=== PATIENT | female | born 1965 | race Caucasian/White ===

== ENCOUNTER 2018-06-06 22:24 | Observation (INO) | payer OTHER ==
[2018-06-06] MEDS ORDERED: Sodium Chloride 0.9% 1,000 ML IV ONE (23:09)
--- NOTE | 2018-06-06 23:09 | C.PDOC ---
History Of Present Illness Patient complains of abdominal pain, nausea and vomiting for the last 4 days. Decreased po intake. No f/c. Discomfort radiates to the back. No urinary symptoms Time Seen by Provider: 06/06/18 23:09 Chief Complaint (Nursing): Abdominal Pain History Per: Patient History/Exam Limitations: no limitations Onset/Duration Of Symptoms: Days Current Symptoms Are (Timing): Still Present Context: Other Severity: Moderate Location Of Pain/Discomfort: RUQ Radiation Of Pain To:: Back Quality Of Discomfort: Dull, Cramping, Pressure Associated Symptoms: Nausea, Vomiting. denies: Chills, Diarrhea, Constipation Exacerbating Factors: None Alleviating Factors: None Last Bowel Movement: Today Recent travel outside of the [place]: No Additional History Per: Patient Abnormal Vaginal Bleeding: No Past Medical History Reviewed: Historical Data, Nursing Documentation, Vital Signs Vital Signs: Last Vital Signs Temp 98.3 F 06/06/18 22:46 Pulse 71 06/06/18 22:46 Resp 18 06/06/18 22:46 BP 127/75 06/06/18 22:46 Pulse Ox 100 06/06/18 22:46 Family History: States: No Known Family Hx - Social History Hx Alcohol Use: No Hx Substance Use: No - Immunization History Hx Tetanus Toxoid Vaccination: No Hx Influenza Vaccination: No Hx Pneumococcal Vaccination: No Review Of Systems Constitutional: Negative for: Fever, Chills Cardiovascular: Negative for: Chest Pain Respiratory: Negative for: Shortness of Breath Gastrointestinal: Positive for: Nausea, Vomiting, Abdominal Pain Genitourinary: Negative for: Dysuria Musculoskeletal: Negative for: Back Pain Skin: Negative for: Rash Neurological: Negative for: Weakness Psych: Negative for: Anxiety Physical Exam - Physical Exam Appears: Non-toxic, No Acute Distress Skin: Warm, Dry Head: Normacephalic Oral Mucosa: Moist Chest: Symmetrical Cardiovascular: Rhythm Regular Respiratory: No Rales, No Rhonchi, No Wheezing Gastrointestinal/Abdominal: Soft, Tenderness, Distention, No Guarding, No Rebound Back: No CVA Tenderness Extremity: No Tenderness Extremity: Bilateral: Atraumatic Neurological/Psych: Oriented x3 Gait: Steady ED Course And Treatment - Laboratory Results Result Diagrams: 06/07/18 00:02 06/07/18 00:02 O2 Sat by Pulse Oximetry: 100 Pulse Ox Interpretation: Normal Progress Note: spoke with surgery - came and saw the pt. spoke with dr foster - gi fellow- will come and see the pt. Disposition Discussed With Dr.: Dayana Foster Comment: accepted the pt onhis service and took over the care at 6AM Doctor Will See Patient In The: Hospital Counseled Patient/Family Regarding: Studies Performed, Diagnosis - Disposition Disposition: HOSPITALIZED Disposition Time: 23:09 Condition: FAIR - POA Present On Arrival: None - Clinical Impression Clinical Impression: Abdominal pain, Ascending cholangitis Decision To Admit - Pt Status Changed To: Hospital Disposition Of: Observation - . Bed Request Type: Regular Admitting Physician: Dayana Foster Patient Diagnosis: Abdominal pain, Ascending cholangitis
[2018-06-06] MEDS ORDERED: Sodium Chloride 0.9% 1,000 ML ONE (23:22)
[2018-06-06 23:45] LABS: SQUAMOUS EPITHIAL < 1 /hpf (0-5); URINE BILIRUBIN NEGATIVE (NEGATIVE); URINE BLOOD 1+ (NEGATIVE); URINE CLARITY Clear (Clear); URINE COLOR Yellow (YELLOW); URINE GLUCOSE (UA) NORMAL (Normal); URINE LEUKOCYTE ESTERASE NEG Leu/uL (Negative); URINE PROTEIN NEGATIVE (NEGATIVE); URINE UROBILINOGEN NORMAL mg/dL (0.2-1.0)
[2018-06-07 00:18] LABS: INR 1.2; PROTHROMBIN TIME 12.9 SECONDS (9.7-12.2)
[2018-06-07 00:22] LABS: BASO % 0.2 % (0.0-2.0); EOS # 0.2 K/uL (0.0-0.7); EOS % 1.9 % (0.0-4.0); HEMOGLOBIN 12.3 g/dL (11.0-16.0); LYMPH # 2.4 K/uL (1.0-4.3); LYMPH % 21.9 % (20.0-40.0); MEAN CELL VOLUME 88.8 fL (81.0-99.0); MEAN CORPUSCULAR HEMOGLOBIN 30.3 pg (27.0-31.0); MEAN CORPUSCULAR HGB CONC 34.1 g/dL (33.0-37.0); MEAN PLATELET VOLUME 9.7 fL (7.2-11.7); MONO # 0.7 K/uL (0.0-0.8); MONO % 6.3 % (0.0-10.0); NEUT # 7.6 K/uL (1.8-7.0); NEUT % 69.7 % (50.0-75.0); RBC 4.05 Mil/uL (3.80-5.20); RED CELL DISTRIBUTION WIDTH 12.5 % (11.5-14.5); WHITE BLOOD COUNT 10.9 K/uL (4.8-10.8)
[2018-06-07 00:32] LABS: ALB/GLOB RATIO 1.3 (1.0-2.1)
[2018-06-07] MEDS ORDERED: Iodixanol 320 MG/ML 100 ML BOTTLE IV ONE ×2 (01:06→01:50)
[2018-06-07 01:12] LABS: ALBUMIN 4.1 g/dL (3.5-5.0); ALT/SGPT < 6 U/L (9-52); AST/SGOT 24 U/L (14-36); BLOOD UREA NITROGEN 13 mg/dL (7-17); CALCIUM 9.2 mg/dl (8.6-10.4); GFR NON-AFRICAN AMERICAN > 60; LIPASE 63 U/L (23-300)
--- NOTE | 2018-06-07 04:51 | CP.PCM.CON ---
History of Present Illness - History of Present Illness History of Present Illness: General Surgery: [place] Patient is a 53 F with no PMH who presents with RUQ pain and n/v. patient denies association with eat, f/c and stool changes. Pain is non radiating and sharp. Patient has history of open cholecystectomy years ago in [place]. PMH: denies PSH: appendectomy, open cholecystectomy All: NKDA Social: denies Meds: none Review of Systems - Review of Systems All systems: reviewed and no additional remarkable complaints except (as per HPI) Past Patient History - Infectious Disease Hx of Infectious Diseases: None - Past Social History Smoking Status: Never Smoked - PSYCHIATRIC Hx Substance Use: No - SURGICAL HISTORY Hx Surgeries: Yes Other/Comment: "abd sx unkown, sx was in [place] - ANESTHESIA Hx Anesthesia: Yes Hx Anesthesia Reactions: No Hx Malignant Hyperthermia: No Meds Allergies/Adverse Reactions: Allergies Allergy/AdvReac Type Severity Reaction Status Date / Time No Known Allergies Allergy Unverified 06/06/18 22:46 Physical Exam - Constitutional Appears: Well, Non-toxic, No Acute Distress - Head Exam Head Exam: ATRAUMATIC, NORMOCEPHALIC - Eye Exam Eye Exam: EOMI - ENT Exam ENT Exam: Mucous Membranes Moist - Respiratory Exam Respiratory Exam: NORMAL BREATHING PATTERN - Cardiovascular Exam Cardiovascular Exam: REGULAR RHYTHM - GI/Abdominal Exam GI & Abdominal Exam: Guarding (RUQ), Soft, Tenderness (RUQ). absent: Distended Additional comments: positive drummond's - Extremities Exam Extremities exam: Negative for: calf tenderness, pedal edema - Neurological Exam Neurological exam: Alert, Oriented x3 - Psychiatric Exam Psychiatric exam: Normal Affect, Normal Mood - Skin Skin Exam: Dry, Intact, Normal Color, Warm Additional comments: subcostal scar noted Results - Vital Signs Recent Vital Signs: Last Vital Signs Temp 98.3 F 06/06/18 22:46 Pulse 71 06/06/18 22:46 Resp 18 06/06/18 22:46 BP 127/75 06/06/18 22:46 Pulse Ox 100 06/06/18 23:27 - Labs Result Diagrams: 06/07/18 00:02 06/07/18 00:02 Labs: Laboratory Results - last 24 hr 06/06/18 06/06/18 06/06/18 23:35 23:35 23:35 WBC RBC Hgb Hct MCV MCH MCHC RDW Plt Count MPV Neut % (Auto) Lymph % (Auto) [place] % (Auto) Eos % (Auto) Baso % (Auto) Neut # (Auto) Lymph # (Auto) [place] # (Auto) Eos # (Auto) Baso # (Auto) PT INR APTT Sodium Cancelled Potassium Cancelled Chloride Cancelled Carbon Dioxide Cancelled Anion Gap Cancelled BUN Cancelled Creatinine Cancelled Est GFR ( Amer) Cancelled Est GFR (Non-Af Amer) Cancelled Random Glucose Cancelled Calcium Cancelled Total Bilirubin Cancelled AST Cancelled ALT Cancelled Alkaline Phosphatase Cancelled Total Protein Cancelled Albumin Cancelled Globulin Cancelled Albumin/Globulin Ratio Cancelled Lipase Cancelled Urine Color Yellow Urine Clarity Clear Urine pH 8.0 Ur Specific [place] 1.010 Urine Protein Negative Urine Glucose (UA) Normal Urine Ketones Negative Urine Blood 1+ H Urine Nitrate Negative Urine Bilirubin Negative Urine Urobilinogen Normal Ur Leukocyte Esterase Neg Urine WBC (Auto) 5 Urine RBC (Auto) 1 Ur Squamous Epith Cells < 1 Urine HCG, Qual Negative 06/07/18 06/07/18 06/07/18 00:02 00:02 00:02 WBC 10.9 H RBC 4.05 Hgb 12.3 Hct 36.0 MCV 88.8 MCH 30.3 MCHC 34.1 RDW 12.5 Plt Count 250 MPV 9.7 Neut % (Auto) 69.7 Lymph % (Auto) 21.9 [place] % (Auto) 6.3 Eos % (Auto) 1.9 Baso % (Auto) 0.2 Neut # (Auto) 7.6 H Lymph # (Auto) 2.4 [place] # (Auto) 0.7 Eos # (Auto) 0.2 Baso # (Auto) 0.0 PT 12.9 H INR 1.2 APTT 34 Sodium 136 Potassium 3.7 Chloride 104 Carbon Dioxide 25 Anion Gap 11 BUN 13 Creatinine 0.6 L Est GFR ( Amer) > 60 Est GFR (Non-Af Amer) > 60 Random Glucose 104 Calcium 9.2 Total Bilirubin 0.5 AST 24 ALT < 6 L Alkaline Phosphatase 82 Total Protein 7.2 Albumin 4.1 Globulin 3.1 Albumin/Globulin Ratio 1.3 Lipase 63 Urine Color Urine Clarity Urine pH Ur Specific [place] Urine Protein Urine Glucose (UA) Urine Ketones Urine Blood Urine Nitrate Urine Bilirubin Urine Urobilinogen Ur Leukocyte Esterase Urine WBC (Auto) Urine RBC (Auto) Ur Squamous Epith Cells Urine HCG, Qual Assessment & Plan - Assessment and Plan (Free Text) Assessment: 53 yr old female with pneumobilia and RUQ abdominal pain Plan: - NPO - IVF - pain control - antiemetics PRN - no acute surgical intervention at this time - follow up GI recs - GB US - further recs per Dr. Radha Viveros, PGY 1 - Date & Time Date: 06/07/18 Time: 04:30
[2018-06-07] MEDS ORDERED: Piperacillin/Tazobact 3.375 gm 100 ML IVPB STA (05:22)
[2018-06-07] MEDS ORDERED: Lactated Ringer's 1,000 ML ONE (05:48)
[2018-06-07] MEDS ORDERED: Piperacillin/Tazobact 3.375 gm 100 ML IVPB ONE (05:48)
[2018-06-07] MEDS: Lactated Ringer's 1,000 ML IV SCH ×2 (05:55→16:58)
--- NOTE | 2018-06-07 10:44 | CT ---
CT abdomen and pelvis HISTORY: Right upper quadrant abdominal pain. COMPARISON: None available. Technique: Multiple contiguous axial images were performed through the abdomen and pelvis with the use of intravenous contrast. Subsequently, sagittal and coronal reformatted images were obtained. This CT exam was performed using one or more of the following dose reduction techniques: Automated exposure control, adjustment of the mA and/or kV according to patient size, and/or use of iterative reconstruction technique. Findings: Scattered areas of focal consolidation and/or atelectasis within the lingula, right middle lobe, and lung bases. Mild nodularity at the medial aspect of the right lower lobe. No pleural or pericardial effusion. Fatty infiltration of the liver. Cholecystectomy. Pneumobilia which may be related to prior surgery and or prior sphincterotomy. In addition, there is thickening and stranding surrounding the central biliary tree. This needs to be evaluated clinically and correlated with inflammatory markers to exclude ascending cholangitis. Clinical correlation. Air within the common bile duct. Spleen is preserved. Adrenal glands are preserved. Pancreas is preserved. Small hiatal hernia. Mild thickening of the stomach. Right kidney: No calculi or hydronephrosis. Left Kidney: No calculi or hydronephrosis. Urinary bladder is preserved. Uterus appears grossly preserved. Fecal retention in the colon. Large amount of stool at the level of the cecum with somewhat limits evaluation at that level. Clinical correlation. Appendix is within normal limits. Few shotty para-aortic and inguinal lymph nodes. Few shotty mesenteric nodes. Degenerative changes in the spine. Impression: 1. Cholecystectomy. Pneumobilia which may be related to prior surgery and or prior sphincterotomy. In addition, there is thickening and stranding surrounding the central biliary tree. This needs to be evaluated clinically and correlated with inflammatory markers to exclude ascending cholangitis. Clinical correlation. 2. Fatty infiltration of the liver. 3. Small hiatal hernia. Mild thickening of the stomach. 4. Scattered areas of focal consolidation and/or atelectasis within the lingula, right middle lobe, and lung bases. A preliminary report was generated at 3 a.m. on 06/07/[address] Ginger Edwards from [employer].
--- NOTE | 2018-06-07 11:08 | CP.PCM.CON ---
History of Present Illness - History of Present Illness History of Present Illness: Asked by Dr. Coyle for a GI consultation on this patient. Translation assistance provided by video [employer] wildlife removal specialist. 53 year old female with history of hyperlipidemia who presents to hospital with complaint of progressive epigastric and right sided abdominal pain for the past 4 days. She reports a sharp, 5/10 intensity epigastric pain radiating to RUQ and flank which is worse after meal consumption. She endorses associated nausea and non-bloody emesis as well. Prior to this, she was having loose, non-bloody diarrhea for 3 days, no bowel movements since. She denies fever/chills, weight loss, rectal bleeding, sick contacts, travel, or recent antibiotic use. She had a cholecystectomy 10 years ago and appendectomy 8 years ago, both in [place]. She also endorses an EGD in [place] 8 months ago, unclear reasons or type of procedure. She attempted consumption of salad and unspecified meat yesterday for dinner but again experienced abdominal pain and came to hospital. Social history: non-smoker, no ETOH use Family history: reviewed, no family history of GI malignancy Review of Systems - Review of Systems Review of Systems: - All other 12 point review of systems performed, negative - Constitutional Constitutional: Malaise - Cardiovascular Cardiovascular: absent: Acrocyanosis, Chest Pain, Chest Pain at Rest, Chest Pain with Activity, Claudication, Diaphoresis, Dyspnea, Dyspnea on Exertion, Edema, Irregular Heart Rhythm, Pain Radiating to Arm/Neck/Jaw, Leg Edema, Leg Ulcers, Lightheadedness, Orthopnea, Palpitations, Paroxysmal Nocturnal Dyspnea, Pedal Edema, Radiating Pain, Rapid Heart Rate, Slow Heart Rate, Syncope, Other - Respiratory Respiratory: absent: Cough, Dyspnea, Hemoptysis, Dyspnea on Exertion, Wheezing, Snoring, Stridor, Pain on Inspiration, Chest Congestion, Excessive Mucous Production, Change in Mucous Color, Pain with Coughing, Other - Gastrointestinal Gastrointestinal: Abdominal Pain - Musculoskeletal Musculoskeletal: absent: Abnormal Gait, Arthralgias, Atrophy, Back Pain, Deformity, Joint Swelling, Limited Range of Motion, Loss of Height, Muscle Cramps, Muscle Weakness, Myalgias, Neck Pain, Numbness, Radiating Pain into Limb, Stiffness, Tingling, Other - Neurological Neurological: absent: Abnormal Gait, Abnormal Hearing, Abnormal Movements, Abnormal Speech, Behavioral Changes, Burning Sensations, Confusion, Convulsions, Disequilibrium, Dizziness, Numbness, Focal Weakness, Frequent Falls, Headaches, Lack of Coordination, Loss of Vision, Memory Loss, Paresthesias, Radicular Pain, Restless Legs, Sensory Deficit, Syncope, Tingling, Tremor, Vertigo, Weakness, Other Visual Disturbances, Other Past Patient History - Infectious Disease Hx of Infectious Diseases: None - Past Social History Smoking Status: Never Smoked - PSYCHIATRIC Hx Substance Use: No - SURGICAL HISTORY Hx Surgeries: Yes Other/Comment: "abd sx unkown, sx was in [place] - ANESTHESIA Hx Anesthesia: Yes Hx Anesthesia Reactions: No Hx Malignant Hyperthermia: No Meds Allergies/Adverse Reactions: Allergies Allergy/AdvReac Type Severity Reaction Status Date / Time No Known Allergies Allergy Unverified 06/06/18 22:46 - Medications Medications: Current Medications Lactated Ringer's (Lactated Ringer's) 1,000 mls @ 100 mls/hr IV .Q10H OWEN Last Admin: 06/07/18 05:55 Dose: 100 mls/hr Piperacillin Sod/Tazobactam Sod (Zosyn 3.375 Gm Iv Premix) 3.375 gm in 50 mls @ 100 mls/hr IVPB Q6H OWEN; Protocol Morphine Sulfate (Morphine) 2 mg IVP Q4 PRN PRN Reason: Pain, moderate (4-7) Last Admin: 06/07/18 05:54 Dose: 2 mg Ondansetron HCl (Zofran Inj) 4 mg IVP Q6 PRN PRN Reason: Nausea/Vomiting Last Admin: 06/07/18 09:42 Dose: 4 mg Physical Exam - Constitutional Appears: Non-toxic, No Acute Distress - Head Exam Head Exam: NORMAL INSPECTION - Eye Exam Eye Exam: EOMI, Normal appearance - ENT Exam ENT Exam: Mucous Membranes Moist - Respiratory Exam Respiratory Exam: Clear to Auscultation Bilateral - Cardiovascular Exam Cardiovascular Exam: +S1, +S2 - GI/Abdominal Exam GI & Abdominal Exam: Normal Bowel Sounds, Soft, Tenderness Additional comments: mild epigastric/RUQ tenderness to palpation, no rebound/guarding no palpable hepato/splenomegaly - Extremities Exam Extremities exam: Positive for: normal inspection - Neurological Exam Neurological exam: Alert, CN II-XII Intact, Oriented x3, Reflexes Normal - Psychiatric Exam Psychiatric exam: Normal Affect, Normal Mood - Skin Skin Exam: Dry, Intact, Normal Color, Warm Results - Vital Signs Recent Vital Signs: Last Vital Signs Temp 98.0 F 06/07/18 07:45 Pulse 71 06/07/18 07:45 Resp 20 06/07/18 07:45 BP 131/77 06/07/18 07:45 Pulse Ox 98 06/07/18 07:45 - Labs Result Diagrams: 06/07/18 00:02 06/07/18 00:02 Labs: Laboratory Results - last 24 hr 06/06/18 06/06/18 06/06/18 23:35 23:35 23:35 WBC RBC Hgb Hct MCV MCH MCHC RDW Plt Count MPV Neut % (Auto) Lymph % (Auto) [place] % (Auto) Eos % (Auto) Baso % (Auto) Neut # (Auto) Lymph # (Auto) [place] # (Auto) Eos # (Auto) Baso # (Auto) PT INR APTT Sodium Cancelled Potassium Cancelled Chloride Cancelled Carbon Dioxide Cancelled Anion Gap Cancelled BUN Cancelled Creatinine Cancelled Est GFR ( Amer) Cancelled Est GFR (Non-Af Amer) Cancelled Random Glucose Cancelled Calcium Cancelled Total Bilirubin Cancelled AST Cancelled ALT Cancelled Alkaline Phosphatase Cancelled Total Protein Cancelled Albumin Cancelled Globulin Cancelled Albumin/Globulin Ratio Cancelled Lipase Cancelled Urine Color Yellow Urine Clarity Clear Urine pH 8.0 Ur Specific [place] 1.010 Urine Protein Negative Urine Glucose (UA) Normal Urine Ketones Negative Urine Blood 1+ H Urine Nitrate Negative Urine Bilirubin Negative Urine Urobilinogen Normal Ur Leukocyte Esterase Neg Urine WBC (Auto) 5 Urine RBC (Auto) 1 Ur Squamous Epith Cells < 1 Urine HCG, Qual Negative 06/07/18 06/07/18 06/07/18 00:02 00:02 00:02 WBC 10.9 H RBC 4.05 Hgb 12.3 Hct 36.0 MCV 88.8 MCH 30.3 MCHC 34.1 RDW 12.5 Plt Count 250 MPV 9.7 Neut % (Auto) 69.7 Lymph % (Auto) 21.9 [place] % (Auto) 6.3 Eos % (Auto) 1.9 Baso % (Auto) 0.2 Neut # (Auto) 7.6 H Lymph # (Auto) 2.4 [place] # (Auto) 0.7 Eos # (Auto) 0.2 Baso # (Auto) 0.0 PT 12.9 H INR 1.2 APTT 34 Sodium 136 Potassium 3.7 Chloride 104 Carbon Dioxide 25 Anion Gap 11 BUN 13 Creatinine 0.6 L Est GFR ( Amer) > 60 Est GFR (Non-Af Amer) > 60 Random Glucose 104 Calcium 9.2 Total Bilirubin 0.5 AST 24 ALT < 6 L Alkaline Phosphatase 82 Total Protein 7.2 Albumin 4.1 Globulin 3.1 Albumin/Globulin Ratio 1.3 Lipase 63 Urine Color Urine Clarity Urine pH Ur Specific [place] Urine Protein Urine Glucose (UA) Urine Ketones Urine Blood Urine Nitrate Urine Bilirubin Urine Urobilinogen Ur Leukocyte Esterase Urine WBC (Auto) Urine RBC (Auto) Ur Squamous Epith Cells Urine HCG, Qual Assessment & Plan - Assessment and Plan (Free Text) Assessment: Hyperlipidemia Abdominal pain, diarrhea CT imaging reviewed by me showing pneumobilia, normal caliber CBD - no clear history of recent instrumentation Plan: - Full liquid diet as tolerated - Continue with antibiotic therapy - Obtain blood and stool cultures - Obtain reports from prior endoscopy performed in [place] - Continue with IVF hydration, supportive care - Anti-emetic therapy PRN - Will continue to monitor patient clinical course
--- NOTE | 2018-06-07 13:24 | CP.PCM.PN ---
Subjective - Date & Time of Evaluation Date of Evaluation: 06/07/18 Time of Evaluation: 13:23 - Subjective Subjective: HEMOBILIA APPEARS INSIGNIFICANT. WILL WATCH FOR NOW Objective - Vital Signs/Intake and Output Vital Signs (last 24 hours): Temp Pulse Resp BP Pulse Ox 98.0 F 71 20 131/77 98 06/07/18 07:45 06/07/18 07:45 06/07/18 07:45 06/07/18 07:45 06/07/18 07:45 - Medications Medications: Current Medications Lactated Ringer's (Lactated Ringer's) 1,000 mls @ 100 mls/hr IV .Q10H OWEN Last Admin: 06/07/18 05:55 Dose: 100 mls/hr Piperacillin Sod/Tazobactam Sod (Zosyn 3.375 Gm Iv Premix) 3.375 gm in 50 mls @ 100 mls/hr IVPB Q6H OWEN; Protocol Morphine Sulfate (Morphine) 2 mg IVP Q4 PRN PRN Reason: Pain, moderate (4-7) Last Admin: 06/07/18 05:54 Dose: 2 mg Ondansetron HCl (Zofran Inj) 4 mg IVP Q6 PRN PRN Reason: Nausea/Vomiting Last Admin: 06/07/18 09:42 Dose: 4 mg - Labs Labs: 06/07/18 00:02 06/07/18 00:02 PT 12.9 SECONDS (9.7-12.2) H 06/07/18 00:02 INR 1.2 06/07/18 00:02 APTT 34 SECONDS (21-34) 06/07/18 00:02
[2018-06-07] MEDS: Piperacill/Tazo 3.375gm in Dex 3.375 GM/50 ML BAG IVPB SCH ×2 (14:41→18:05)
--- NOTE | 2018-06-07 16:04 | US ---
Right upper quadrant abdominal ultrasound HISTORY: Pneumobilia. COMPARISON: CT dated 06/07/2017 TECHNIQUE: Real-time sonography was performed through the right upper quadrant of the abdomen. Findings: Liver: 12.5 centimeters in length. Increased echogenicity of the hepatic parenchymal cortex suggestive for fatty infiltration versus hepatic parenchymal disease. Prior cholecystectomy. Pneumobilia again noted. This may be related to cholecystectomy and or sphincterotomy. Common bile duct measures 3.4 millimeters, within normal limits. Limited visualization of the pancreas. Pancreatic duct measures up to 2.1 millimeters. Limited visualization of the aorta and IVC. Right kidney: 12.4 x 4.2 x 4.8 centimeters. Upper pole echogenic foci suggestive for a nonobstructive calculus measuring 2.5 x 2.0 millimeters. No gross hydronephrosis. Impression: 1. Pneumobilia again noted. 2. Increased echogenicity of the hepatic parenchymal cortex suggestive for fatty infiltration versus hepatic parenchymal disease. Clinical correlation. 3. Echogenic foci in the upper pole of the right kidney suggestive for a 2.5 millimeter upper pole nonobstructive right renal calculus.
[2018-06-07] MEDS: metroNIDAZOLE IV 500 mg/100 ml 500 MG/100 ML BAG IVPB SCH (18:58)
--- NOTE | 2018-06-07 21:17 | CP.PCM.HP ---
Past Patient History - Infectious Disease Hx of Infectious Diseases: None - Past Social History Smoking Status: Never Smoked - PSYCHIATRIC Hx Substance Use: No - SURGICAL HISTORY Hx Surgeries: Yes Other/Comment: "abd sx unkown, sx was in [place] - ANESTHESIA Hx Anesthesia: Yes Hx Anesthesia Reactions: No Hx Malignant Hyperthermia: No Meds Allergies/Adverse Reactions: Allergies Allergy/AdvReac Type Severity Reaction Status Date / Time No Known Allergies Allergy Unverified 06/06/18 22:46 Physical Exam - Constitutional Appears: Well - Head Exam Head Exam: ATRAUMATIC, NORMAL INSPECTION, NORMOCEPHALIC - Eye Exam Eye Exam: EOMI, Normal appearance, PERRL Pupil Exam: NORMAL ACCOMODATION, PERRL - ENT Exam ENT Exam: Mucous Membranes Moist, Normal Exam - Neck Exam Neck exam: Positive for: Normal Inspection - Respiratory Exam Respiratory Exam: Decreased Breath Sounds - Cardiovascular Exam Cardiovascular Exam: REGULAR RHYTHM, +S1, +S2 - GI/Abdominal Exam GI & Abdominal Exam: Diminished Bowel Sounds, Soft - Rectal Exam Rectal Exam: Deferred - Neurological Exam Neurological exam: Oriented x3 Results - Vital Signs Recent Vital Signs: Last Vital Signs Temp 97.5 F L 06/07/18 15:00 Pulse 64 06/07/18 15:00 Resp 20 06/07/18 15:00 BP 111/75 06/07/18 15:00 Pulse Ox 98 06/07/18 18:00 - Labs Result Diagrams: 06/07/18 00:02 06/07/18 00:02 Labs: Laboratory Results - last 24 hr 06/06/18 06/06/18 06/06/18 23:35 23:35 23:35 WBC RBC Hgb Hct MCV MCH MCHC RDW Plt Count MPV Neut % (Auto) Lymph % (Auto) [place] % (Auto) Eos % (Auto) Baso % (Auto) Neut # (Auto) Lymph # (Auto) [place] # (Auto) Eos # (Auto) Baso # (Auto) PT INR APTT Sodium Cancelled Potassium Cancelled Chloride Cancelled Carbon Dioxide Cancelled Anion Gap Cancelled BUN Cancelled Creatinine Cancelled Est GFR ( Amer) Cancelled Est GFR (Non-Af Amer) Cancelled Random Glucose Cancelled Calcium Cancelled Total Bilirubin Cancelled AST Cancelled ALT Cancelled Alkaline Phosphatase Cancelled Total Protein Cancelled Albumin Cancelled Globulin Cancelled Albumin/Globulin Ratio Cancelled Lipase Cancelled Urine Color Yellow Urine Clarity Clear Urine pH 8.0 Ur Specific [place] 1.010 Urine Protein Negative Urine Glucose (UA) Normal Urine Ketones Negative Urine Blood 1+ H Urine Nitrate Negative Urine Bilirubin Negative Urine Urobilinogen Normal Ur Leukocyte Esterase Neg Urine WBC (Auto) 5 Urine RBC (Auto) 1 Ur Squamous Epith Cells < 1 Urine HCG, Qual Negative 06/07/18 06/07/18 06/07/18 00:02 00:02 00:02 WBC 10.9 H RBC 4.05 Hgb 12.3 Hct 36.0 MCV 88.8 MCH 30.3 MCHC 34.1 RDW 12.5 Plt Count 250 MPV 9.7 Neut % (Auto) 69.7 Lymph % (Auto) 21.9 [place] % (Auto) 6.3 Eos % (Auto) 1.9 Baso % (Auto) 0.2 Neut # (Auto) 7.6 H Lymph # (Auto) 2.4 [place] # (Auto) 0.7 Eos # (Auto) 0.2 Baso # (Auto) 0.0 PT 12.9 H INR 1.2 APTT 34 Sodium 136 Potassium 3.7 Chloride 104 Carbon Dioxide 25 Anion Gap 11 BUN 13 Creatinine 0.6 L Est GFR ( Amer) > 60 Est GFR (Non-Af Amer) > 60 Random Glucose 104 Calcium 9.2 Total Bilirubin 0.5 AST 24 ALT < 6 L Alkaline Phosphatase 82 Total Protein 7.2 Albumin 4.1 Globulin 3.1 Albumin/Globulin Ratio 1.3 Lipase 63 Urine Color Urine Clarity Urine pH Ur Specific [place] Urine Protein Urine Glucose (UA) Urine Ketones Urine Blood Urine Nitrate Urine Bilirubin Urine Urobilinogen Ur Leukocyte Esterase Urine WBC (Auto) Urine RBC (Auto) Ur Squamous Epith Cells Urine HCG, Qual Assessment & Plan - Assessment and Plan (Free Text) Plan: spoke to patient through [facility] who lives in [facility] patient lives alone here patient contiues to have pain for the last 2 weeks patient seen by id and GI docor ct report pending will follow up with ct abdomen
--- NOTE | 2018-06-07 22:40 | CP.PCM.CON ---
History of Present Illness - History of Present Illness History of Present Illness: INFECTIOUS DISEASE CONSULT; HPI; 53-year-old Greek female who is admitted because of abdominal pain, nausea and vomiting for the last 4 days. Patient also complains of decreased by mouth intake. Patient states that the abdominal pain is epigastric/RUQ in nature and radiates to the back but denies any history of dysuria or hematuria. Patient also gives history of diarrhea for the past 3 days which is non-bloody. Patient admits to history of CHOLECYSTECTOMY several years ago in [place]. CT scan of the abdomen and pelvis with IV contrast showed scattered areas of focal consolidation atelectasis in the lingula,RML/ RLL with mild nodularity. Fatty infiltration liver/cholecystectomy. Gallbladder and hepatic ultrasound showed pneumobilia with normal common bile duct. Fatty liver. And 2.5 mm stone upper pole right kidney nonobstructive in nature. Patient was empirically started on IV Zosyn 3.375 g every 6 hourly as noted. INFECTIOUS DISEASE CONSULTATION REQUESTED BY PMD FOR ABDOMINAL PAIN/? CHOLANGITIS. Patient denies COUGH OR EXPECTORATION BUT ADMITS TO BURNING IN THE THROAT DUE TO VOMITING. PATIENT PRESENTLY IS BEING SEEN BY SURGERY/AND GI NOTED. PMH: denies PSH: appendectomy, open cholecystectomy All: NKDA Social: denies Meds: PER MARS ALLERGY; NKA. Review of Systems - Constitutional Constitutional: absent: Chills, Fever - EENT Nose/Mouth/Throat: absent: Dysphagia, Mouth Lesions - Cardiovascular Cardiovascular: absent: Chest Pain, Dyspnea - Respiratory Respiratory: absent: Cough, Pain with Coughing - Gastrointestinal Gastrointestinal: Abdominal Pain (RIGHT UPPER QUADRANT AND EPIGASTRIC.), Diarrhea, Dyspepsia, Nausea, Vomiting. absent: Dysphagia - Genitourinary Genitourinary: absent: Dysuria, Freq UTI - Neurological Neurological: Headaches - Hematologic/Lymphatic Hematologic: As Per HPI. absent: Easy Bleeding, Easy Bruising Past Patient History - Infectious Disease Hx of Infectious Diseases: None - Past Social History Smoking Status: Never Smoked - PSYCHIATRIC Hx Substance Use: No - SURGICAL HISTORY Hx Surgeries: Yes Other/Comment: "abd sx unkown, sx was in [place] - ANESTHESIA Hx Anesthesia: Yes Hx Anesthesia Reactions: No Hx Malignant Hyperthermia: No Meds Allergies/Adverse Reactions: Allergies Allergy/AdvReac Type Severity Reaction Status Date / Time No Known Allergies Allergy Unverified 06/06/18 22:46 - Medications Medications: Current Medications Lactated Ringer's (Lactated Ringer's) 1,000 mls @ 100 mls/hr IV .Q10H OWEN Last Admin: 06/07/18 16:58 Dose: Not Given Piperacillin Sod/Tazobactam Sod (Zosyn 3.375 Gm Iv Premix) 3.375 gm in 50 mls @ 100 mls/hr IVPB Q6H OWEN; Protocol Last Admin: 06/07/18 18:05 Dose: 100 mls/hr Metronidazole (Flagyl) 500 mg in 100 mls @ 100 mls/hr IVPB Q8H OWEN; Protocol Last Admin: 06/07/18 18:58 Dose: 100 mls/hr Morphine Sulfate (Morphine) 2 mg IVP Q4 PRN PRN Reason: Pain, moderate (4-7) Last Admin: 06/07/18 21:16 Dose: 2 mg Ondansetron HCl (Zofran Inj) 4 mg IVP Q6 PRN PRN Reason: Nausea/Vomiting Last Admin: 06/07/18 21:16 Dose: 4 mg Physical Exam - Constitutional Appears: No Acute Distress - Head Exam Head Exam: NORMAL INSPECTION - Eye Exam Eye Exam: EOMI, PERRL. absent: Scleral icterus - ENT Exam ENT Exam: Normal Oropharynx - Respiratory Exam Respiratory Exam: Rhonchi (RT SIDE), NORMAL BREATHING PATTERN. absent: Wheezes - Cardiovascular Exam Cardiovascular Exam: REGULAR RHYTHM, +S1, +S2 - GI/Abdominal Exam GI & Abdominal Exam: Soft, Tenderness (EPIGASTRIC PAIN/RUQ). absent: Distended, Guarding - Extremities Exam Extremities exam: Positive for: pedal pulses present. Negative for: calf tenderness, pedal edema - Neurological Exam Neurological exam: Alert, CN II-XII Intact, Normal Gait, Oriented x3, Reflexes Normal - Psychiatric Exam Psychiatric exam: Normal Mood - Skin Skin Exam: Normal Color, Warm Results - Vital Signs Recent Vital Signs: Last Vital Signs Temp 97.5 F L 06/07/18 15:00 Pulse 64 06/07/18 15:00 Resp 20 06/07/18 15:00 BP 111/75 06/07/18 15:00 Pulse Ox 98 06/07/18 18:00 - Labs Result Diagrams: 06/07/18 00:02 06/07/18 00:02 Labs: Laboratory Results - last 24 hr 06/06/18 06/06/18 06/06/18 23:35 23:35 23:35 WBC RBC Hgb Hct MCV MCH MCHC RDW Plt Count MPV Neut % (Auto) Lymph % (Auto) [place] % (Auto) Eos % (Auto) Baso % (Auto) Neut # (Auto) Lymph # (Auto) [place] # (Auto) Eos # (Auto) Baso # (Auto) PT INR APTT Sodium Cancelled Potassium Cancelled Chloride Cancelled Carbon Dioxide Cancelled Anion Gap Cancelled BUN Cancelled Creatinine Cancelled Est GFR ( Amer) Cancelled Est GFR (Non-Af Amer) Cancelled Random Glucose Cancelled Calcium Cancelled Total Bilirubin Cancelled AST Cancelled ALT Cancelled Alkaline Phosphatase Cancelled Total Protein Cancelled Albumin Cancelled Globulin Cancelled Albumin/Globulin Ratio Cancelled Lipase Cancelled Urine Color Yellow Urine Clarity Clear Urine pH 8.0 Ur Specific [place] 1.010 Urine Protein Negative Urine Glucose (UA) Normal Urine Ketones Negative Urine Blood 1+ H Urine Nitrate Negative Urine Bilirubin Negative Urine Urobilinogen Normal Ur Leukocyte Esterase Neg Urine WBC (Auto) 5 Urine RBC (Auto) 1 Ur Squamous Epith Cells < 1 Urine HCG, Qual Negative 06/07/18 06/07/18 06/07/18 00:02 00:02 00:02 WBC 10.9 H RBC 4.05 Hgb 12.3 Hct 36.0 MCV 88.8 MCH 30.3 MCHC 34.1 RDW 12.5 Plt Count 250 MPV 9.7 Neut % (Auto) 69.7 Lymph % (Auto) 21.9 [place] % (Auto) 6.3 Eos % (Auto) 1.9 Baso % (Auto) 0.2 Neut # (Auto) 7.6 H Lymph # (Auto) 2.4 [place] # (Auto) 0.7 Eos # (Auto) 0.2 Baso # (Auto) 0.0 PT 12.9 H INR 1.2 APTT 34 Sodium 136 Potassium 3.7 Chloride 104 Carbon Dioxide 25 Anion Gap 11 BUN 13 Creatinine 0.6 L Est GFR ( Amer) > 60 Est GFR (Non-Af Amer) > 60 Random Glucose 104 Calcium 9.2 Total Bilirubin 0.5 AST 24 ALT < 6 L Alkaline Phosphatase 82 Total Protein 7.2 Albumin 4.1 Globulin 3.1 Albumin/Globulin Ratio 1.3 Lipase 63 Urine Color Urine Clarity Urine pH Ur Specific [place] Urine Protein Urine Glucose (UA) Urine Ketones Urine Blood Urine Nitrate Urine Bilirubin Urine Urobilinogen Ur Leukocyte Esterase Urine WBC (Auto) Urine RBC (Auto) Ur Squamous Epith Cells Urine HCG, Qual Assessment & Plan (1) Abdominal pain Status: Acute (2) Pneumobilia Status: Acute (3) Pneumonia Status: Acute (4) Hx of cholecystectomy Status: Acute - Assessment and Plan (Free Text) Plan: PLAN; PANCULTURE. CXR PA/LAT.R/O PNEUMONIA DIARRHOEA W/U. CONTINUE iv zOSYN 3.375 EVERY 6 HOURLY 06/07/18. ADD IV FLAGYL 500 MG IV EVERY 8 HOURLY 06/07/18. PER SURGERY /GI . WILL FOLLOW ALONG WITH YOU . THANK YOU.
[2018-06-08] MEDS: Piperacill/Tazo 3.375gm in Dex 3.375 GM/50 ML BAG IVPB SCH ×4 (00:09→17:37)
[2018-06-08] MEDS: Lactated Ringer's 1,000 ML IV SCH ×3 (02:16→21:30)
[2018-06-08] MEDS: metroNIDAZOLE IV 500 mg/100 ml 500 MG/100 ML BAG IVPB SCH ×3 (02:17→17:37)
[2018-06-08] MEDS ORDERED: Lactated Ringer's 1,000 ML IV ONE (09:30)
[2018-06-08] MEDS ORDERED: Midazolam 2 MG/2 ML VIAL ONE (09:33)
[2018-06-08] MEDS ORDERED: Propofol 10 mg/ml Inj (20 ML) ONE (09:34)
[2018-06-08] MEDS ORDERED: Lidocaine Hydrochloride 5 ML INJ ONE (09:35)
--- NOTE | 2018-06-08 10:50 | CP.PCM.PN ---
Subjective - Date & Time of Evaluation Date of Evaluation: 06/08/18 Time of Evaluation: 06:35 - Subjective Subjective: Patient seen and examined. No acute events over night. Denies abdominal pain. Reports nausea. Objective - Vital Signs/Intake and Output Vital Signs (last 24 hours): Temp Pulse Resp BP Pulse Ox 99.3 F 75 23 124/47 L 95 06/08/18 09:52 06/08/18 10:22 06/08/18 10:22 06/08/18 10:22 06/08/18 10:22 Intake and Output: 06/08/18 06/08/18 06:59 18:59 Intake Total 0 Balance 0 - Medications Medications: Current Medications Lactated Ringer's (Lactated Ringer's) 1,000 mls @ 100 mls/hr IV .Q10H OWEN Last Admin: 06/08/18 02:16 Dose: Not Given Piperacillin Sod/Tazobactam Sod (Zosyn 3.375 Gm Iv Premix) 3.375 gm in 50 mls @ 100 mls/hr IVPB Q6H OWEN; Protocol Last Admin: 06/08/18 06:02 Dose: 100 mls/hr Metronidazole (Flagyl) 500 mg in 100 mls @ 100 mls/hr IVPB Q8H OWEN; Protocol Last Admin: 06/08/18 02:17 Dose: 100 mls/hr Morphine Sulfate (Morphine) 2 mg IVP Q4 PRN PRN Reason: Pain, moderate (4-7) Last Admin: 06/08/18 06:15 Dose: 2 mg Ondansetron HCl (Zofran Inj) 4 mg IVP Q6 PRN PRN Reason: Nausea/Vomiting Last Admin: 06/07/18 21:16 Dose: 4 mg Pneumococcal Polyvalent Vaccine (Pneumovax 23 Vaccine) 0.5 ml IM .ONCE ONE Stop: 06/08/18 14:01 - Labs Labs: 06/07/18 00:02 06/07/18 00:02 PT 12.9 SECONDS (9.7-12.2) H 06/07/18 00:02 INR 1.2 06/07/18 00:02 APTT 34 SECONDS (21-34) 06/07/18 00:02 - Constitutional Appears: No Acute Distress - Head Exam Head Exam: NORMOCEPHALIC - Eye Exam Eye Exam: EOMI, Normal appearance - ENT Exam ENT Exam: Mucous Membranes Moist - Respiratory Exam Respiratory Exam: NORMAL BREATHING PATTERN - Cardiovascular Exam Cardiovascular Exam: +S1, +S2 - GI/Abdominal Exam GI & Abdominal Exam: Soft - Neurological Exam Neurological Exam: Alert, Awake, Oriented x3 - Psychiatric Exam Psychiatric exam: Normal Mood - Skin Skin Exam: Dry, Intact, Warm Assessment and Plan - Assessment and Plan (Free Text) Assessment: 53 yr old female with pneumobilia and RUQ abdominal pain Plan: - NPO - IVF - pain control - antiemetics PRN -GB U/S: CBD 3.4mm, pneumobilia noted - follow up EGD results - further recs per Dr. Radha Connolly PGY3
--- NOTE | 2018-06-08 13:21 | CP.PCM.PN ---
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 Regardless, fistula is open and functioning and I dont see any reason to change it. For now am inclined to just leave her be. Objective - Vital Signs/Intake and Output Vital Signs (last 24 hours): Temp Pulse Resp BP Pulse Ox 97.6 F 65 20 116/72 97 06/08/18 11:10 06/08/18 11:10 06/08/18 11:10 06/08/18 11:10 06/08/18 11:10 Intake and Output: 06/08/18 06/08/18 06:59 18:59 Intake Total 0 Balance 0 - Medications Medications: Current Medications Lactated Ringer's (Lactated Ringer's) 1,000 mls @ 100 mls/hr IV .Q10H OWEN Last Admin: 06/08/18 02:16 Dose: Not Given Piperacillin Sod/Tazobactam Sod (Zosyn 3.375 Gm Iv Premix) 3.375 gm in 50 mls @ 100 mls/hr IVPB Q6H OWEN; Protocol Last Admin: 06/08/18 06:02 Dose: 100 mls/hr Metronidazole (Flagyl) 500 mg in 100 mls @ 100 mls/hr IVPB Q8H OWEN; Protocol Last Admin: 06/08/18 11:08 Dose: 100 mls/hr Morphine Sulfate (Morphine) 2 mg IVP Q4 PRN PRN Reason: Pain, moderate (4-7) Last Admin: 06/08/18 06:15 Dose: 2 mg Ondansetron HCl (Zofran Inj) 4 mg IVP Q6 PRN PRN Reason: Nausea/Vomiting Last Admin: 06/07/18 21:16 Dose: 4 mg Pneumococcal Polyvalent Vaccine (Pneumovax 23 Vaccine) 0.5 ml IM .ONCE ONE Stop: 06/08/18 14:01 - Labs Labs: 06/07/18 00:02 06/07/18 00:02 PT 12.9 SECONDS (9.7-12.2) H 06/07/18 00:02 INR 1.2 06/07/18 00:02 APTT 34 SECONDS (21-34) 06/07/18 00:02
[2018-06-08] MEDS ORDERED: Pneumococcal 23-Valent Vaccine IM ONE (14:00)
--- NOTE | 2018-06-08 14:57 | RAD ---
Date of service: 06/08/2018 HISTORY: PNEUMONIA COMPARISON: Comparison made with CT scan abdomen pelvis 06/07/2018 which imaged both lung bases. TECHNIQUE: Chest PA and lateral views FINDINGS: LUNGS: Minor bibasilar atelectasis and/or scarring changes. Slight increased interstitial markings; rule out mild reactive/inflammatory airway disease or viral illness. The possibility of mild chronic compensated pulmonary venous congestion not excluded.. Persistent elevation right hemidiaphragm possibly due to eventration. PLEURA: No significant pleural effusion identified. No pneumothorax apparent. CARDIOVASCULAR: No aortic atherosclerotic calcification present. Mild cardiomegaly. No pulmonary vascular congestion. OSSEOUS STRUCTURES: No significant abnormalities. VISUALIZED UPPER ABDOMEN: Normal. OTHER FINDINGS: None. IMPRESSION: Minor bibasilar atelectasis and or scarring changes. Slight increased interstitial markings; rule out mild reactive/inflammatory airway disease or viral illness. The possibility of mild chronic compensated pulmonary venous congestion not excluded.. Elevation right hemidiaphragm possibly due to eventration.
--- NOTE | 2018-06-08 18:53 | CP.PCM.PN ---
Subjective - Date & Time of Evaluation Date of Evaluation: 06/08/18 Time of Evaluation: 18:53 - Subjective Subjective: CHIEF COMPLAINTS TODAY : s/p EGD - CHOLEDOCHODUODENAL FISTULA C/O N/VOMITING THROAT BURNING/SORE ROS. HEENT : N.- THRUSH Resp : No cough, wheezing ,pleuritic CP ,or hemoptysis Cardio : No anginal CP, PND, orthopnea, palpitation GI : +VE abd.pain,+VE n/v , +VE diarrhea, NO GI bleeding . [employer] : No headache, vertigo, focal deficit. Musculoskel : No joint swelling , Derm : No rash Psych : Normal affect. Ext : No swelling ,calf pain PE. Pt. is alert awake in no distress. V.S As noted in the chart Head ,ear nose,throat and eyes : Normal. Neck : Supple with normal carotids. Lungs: EXPIRATORY WHEEZE. Heart : S1 & S2 normal with S4. No murmur. Abd : Soft GENERALIZED TENDERNESS RUQ AND EPIGASTRIUM , with normal bowel sounds. Neuro : Moves all ext. with no localized deficit. Ext : No edema with intact pulses.Non tender calves Derm : No rashes or decubitus ulcer. LABS/RADIOLOGY. REVIEWED BLOOD CULTURES -VE X 24HRS CXR 06/08/18 INCREASED INTERSTIAL MARKINGS /? REACTIVE INFLAMMATORY AIRWAYS BIBASILAR ATELEVTASIS ( see full report ) Objective - Vital Signs/Intake and Output Vital Signs (last 24 hours): Temp Pulse Resp BP Pulse Ox 97.6 F 65 20 116/72 97 06/08/18 11:10 06/08/18 11:10 06/08/18 11:10 06/08/18 11:10 06/08/18 17:04 Intake and Output: 06/08/18 06/08/18 06:59 18:59 Intake Total 0 200 Balance 0 200 - Medications Medications: Current Medications Lactated Ringer's (Lactated Ringer's) 1,000 mls @ 100 mls/hr IV .Q10H OWEN Last Admin: 06/08/18 14:58 Dose: Not Given Piperacillin Sod/Tazobactam Sod (Zosyn 3.375 Gm Iv Premix) 3.375 gm in 50 mls @ 100 mls/hr IVPB Q6H OWEN; Protocol Last Admin: 06/08/18 17:37 Dose: 100 mls/hr Metronidazole (Flagyl) 500 mg in 100 mls @ 100 mls/hr IVPB Q8H OWEN; Protocol Last Admin: 06/08/18 17:37 Dose: 100 mls/hr Morphine Sulfate (Morphine) 2 mg IVP Q4 PRN PRN Reason: Pain, moderate (4-7) Last Admin: 06/08/18 06:15 Dose: 2 mg Ondansetron HCl (Zofran Inj) 4 mg IVP Q6 PRN PRN Reason: Nausea/Vomiting Last Admin: 06/08/18 17:41 Dose: 4 mg - Labs Labs: 06/07/18 00:02 06/07/18 00:02 PT 12.9 SECONDS (9.7-12.2) H 06/07/18 00:02 INR 1.2 06/07/18 00:02 APTT 34 SECONDS (21-34) 06/07/18 00:02 Assessment and Plan (1) Abdominal pain Status: Acute (2) Pneumobilia Status: Acute (3) Pneumonia Status: Acute (4) Hx of cholecystectomy Status: Acute - Assessment and Plan (Free Text) Plan: PLAN; CONTINUE iv zOSYN 3.375 EVERY 6 HOURLY 06/07/18. ON IV FLAGYL 500 MG IV EVERY 8 HOURLY 06/07/18. DIARRHOEA W/U. DISCUSSED W GI.. F/U CULTURES PER SURGERY /GI .
--- NOTE | 2018-06-08 19:03 | CP.PCM.PN ---
Subjective - Date & Time of Evaluation Date of Evaluation: 06/08/18 - Subjective Subjective: patient seen today no nausea, no vomiting no dizziness no diarrhea no fever no shortness of breath Objective - Vital Signs/Intake and Output Vital Signs (last 24 hours): Temp Pulse Resp BP Pulse Ox 97.6 F 65 20 116/72 97 06/08/18 11:10 06/08/18 11:10 06/08/18 11:10 06/08/18 11:10 06/08/18 17:04 Intake and Output: 06/08/18 06/09/18 18:59 06:59 Intake Total 200 Balance 200 - Medications Medications: Current Medications Lactated Ringer's (Lactated Ringer's) 1,000 mls @ 100 mls/hr IV .Q10H OWEN Last Admin: 06/08/18 14:58 Dose: Not Given Piperacillin Sod/Tazobactam Sod (Zosyn 3.375 Gm Iv Premix) 3.375 gm in 50 mls @ 100 mls/hr IVPB Q6H OWEN; Protocol Last Admin: 06/08/18 17:37 Dose: 100 mls/hr Metronidazole (Flagyl) 500 mg in 100 mls @ 100 mls/hr IVPB Q8H OWEN; Protocol Last Admin: 06/08/18 17:37 Dose: 100 mls/hr Morphine Sulfate (Morphine) 2 mg IVP Q4 PRN PRN Reason: Pain, moderate (4-7) Last Admin: 06/08/18 06:15 Dose: 2 mg Ondansetron HCl (Zofran Inj) 4 mg IVP Q6 PRN PRN Reason: Nausea/Vomiting Last Admin: 06/08/18 17:41 Dose: 4 mg - Labs Labs: 06/07/18 00:02 06/07/18 00:02 PT 12.9 SECONDS (9.7-12.2) H 06/07/18 00:02 INR 1.2 06/07/18 00:02 APTT 34 SECONDS (21-34) 06/07/18 00:02 - Constitutional Appears: Well - Head Exam Head Exam: ATRAUMATIC, NORMAL INSPECTION, NORMOCEPHALIC - Eye Exam Eye Exam: EOMI, Normal appearance, PERRL Pupil Exam: NORMAL ACCOMODATION, PERRL - ENT Exam ENT Exam: Mucous Membranes Moist, Normal Exam - Neck Exam Neck Exam: Full ROM, Normal Inspection. absent: Lymphadenopathy - Respiratory Exam Respiratory Exam: Decreased Breath Sounds - Cardiovascular Exam Cardiovascular Exam: REGULAR RHYTHM, +S1, +S2 - GI/Abdominal Exam GI & Abdominal Exam: Soft, Diminished Bowel Sounds - Rectal Exam Rectal Exam: Deferred - Neurological Exam Neurological Exam: Oriented x3 Assessment and Plan - Assessment and Plan (Free Text) Plan: medications reviewed labs reviewed vitals reviewed flagyl lactated ringers morphine zofran inj zosyn
[2018-06-09] MEDS: Piperacill/Tazo 3.375gm in Dex 3.375 GM/50 ML BAG IVPB SCH ×2 (00:26→05:11)
[2018-06-09 01:31] VITALS: TEMP 97.8; O2SAT 95
[2018-06-09] MEDS: metroNIDAZOLE IV 500 mg/100 ml 500 MG/100 ML BAG IVPB SCH ×2 (01:58→09:53)
[2018-06-09] MEDS: Lactated Ringer's 1,000 ML IV SCH ×2 (05:12→08:53)
--- NOTE | 2018-06-09 05:53 | CP.PCM.PN ---
Subjective - Date & Time of Evaluation Date of Evaluation: 06/09/18 Time of Evaluation: 05:50 - Subjective Subjective: Surgery Progress Note- Dr. Garcia Patient seen and examined at bedside. no new complaints at this time. no acute events overnight per nursing. Yesterday had conversation with daughter; due to patients insurance family wants to seek medical treatment at a [facility]. Due to patient's current clinical picture and wishes, patient is stable for discharge to follow up with treatment at desired facility. Objective - Vital Signs/Intake and Output Vital Signs (last 24 hours): Temp Pulse Resp BP Pulse Ox 97.8 F 72 18 98/58 L 95 06/08/18 23:15 06/08/18 23:15 06/08/18 23:15 06/08/18 23:15 06/08/18 23:15 Intake and Output: 06/08/18 06/09/18 18:59 06:59 Intake Total 200 Balance 200 - Medications Medications: Current Medications Lactated Ringer's (Lactated Ringer's) 1,000 mls @ 100 mls/hr IV .Q10H OWEN Last Admin: 06/09/18 05:12 Dose: 100 mls/hr Piperacillin Sod/Tazobactam Sod (Zosyn 3.375 Gm Iv Premix) 3.375 gm in 50 mls @ 100 mls/hr IVPB Q6H OWEN; Protocol Last Admin: 06/09/18 05:11 Dose: 100 mls/hr Metronidazole (Flagyl) 500 mg in 100 mls @ 100 mls/hr IVPB Q8H OWEN; Protocol Last Admin: 06/09/18 01:58 Dose: 100 mls/hr Morphine Sulfate (Morphine) 2 mg IVP Q4 PRN PRN Reason: Pain, moderate (4-7) Last Admin: 06/08/18 06:15 Dose: 2 mg Ondansetron HCl (Zofran Inj) 4 mg IVP Q6 PRN PRN Reason: Nausea/Vomiting Last Admin: 06/08/18 17:41 Dose: 4 mg - Labs Labs: 06/07/18 00:02 06/07/18 00:02 PT 12.9 SECONDS (9.7-12.2) H 06/07/18 00:02 INR 1.2 06/07/18 00:02 APTT 34 SECONDS (21-34) 06/07/18 00:02 - Constitutional Appears: Non-toxic, No Acute Distress - Head Exam Head Exam: ATRAUMATIC - Eye Exam Eye Exam: EOMI. absent: Scleral icterus - ENT Exam ENT Exam: Mucous Membranes Moist - Cardiovascular Exam Cardiovascular Exam: REGULAR RHYTHM. absent: Bradycardia, Tachycardia - GI/Abdominal Exam GI & Abdominal Exam: Soft, Tenderness (minimally tender to deep palpation in RUQ). 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 Garcia Surgical Attending PGY2
[2018-06-09 07:59] VITALS: BP 145/88; PULSE 65; RESP 20
--- NOTE | 2018-06-09 09:30 | CP.PCM.PN ---
<Harriet Coyle - Last Filed: 06/09/18 09:31> Subjective - Date & Time of Evaluation Date of Evaluation: 06/09/18 Time of Evaluation: 08:00 - Subjective Subjective: Pgy5 GI Follow-up Pt seen and examined bedside improved nausea and vomiting Denies any abd pain tolerating diet ROS: 12 point ROS conducted, neg other than above Objective - Vital Signs/Intake and Output Vital Signs (last 24 hours): Temp Pulse Resp BP Pulse Ox 97.8 F 65 20 145/88 95 06/09/18 07:20 06/09/18 07:20 06/09/18 07:20 06/09/18 07:20 06/09/18 07:20 Intake and Output: 06/09/18 06/09/18 06:59 18:59 Intake Total 800 Balance 800 - Medications Medications: Current Medications Lactated Ringer's (Lactated Ringer's) 1,000 mls @ 100 mls/hr IV .Q10H OWEN Last Admin: 06/09/18 08:53 Dose: Not Given Piperacillin Sod/Tazobactam Sod (Zosyn 3.375 Gm Iv Premix) 3.375 gm in 50 mls @ 100 mls/hr IVPB Q6H OWEN; Protocol Last Admin: 06/09/18 05:11 Dose: 100 mls/hr Metronidazole (Flagyl) 500 mg in 100 mls @ 100 mls/hr IVPB Q8H OWEN; Protocol Last Admin: 06/09/18 01:58 Dose: 100 mls/hr Morphine Sulfate (Morphine) 2 mg IVP Q4 PRN PRN Reason: Pain, moderate (4-7) Last Admin: 06/08/18 06:15 Dose: 2 mg Ondansetron HCl (Zofran Inj) 4 mg IVP Q6 PRN PRN Reason: Nausea/Vomiting Last Admin: 06/08/18 17:41 Dose: 4 mg - Labs Labs: 06/07/18 00:02 06/07/18 00:02 PT 12.9 SECONDS (9.7-12.2) H 06/07/18 00:02 INR 1.2 06/07/18 00:02 APTT 34 SECONDS (21-34) 06/07/18 00:02 - Constitutional Appears: Non-toxic, No Acute Distress - Head Exam Head Exam: ATRAUMATIC, NORMOCEPHALIC - Eye Exam Eye Exam: Normal appearance - ENT Exam ENT Exam: Mucous Membranes Moist, Normal Exam - Neck Exam Neck Exam: Normal Inspection - Respiratory Exam Respiratory Exam: Clear to Ausculation Bilateral, NORMAL BREATHING PATTERN. absent: Rales, Rhonchi, Wheezes, Respiratory Distress - Cardiovascular Exam Cardiovascular Exam: REGULAR RHYTHM, +S1, +S2 - GI/Abdominal Exam GI & Abdominal Exam: Soft, Normal Bowel Sounds. absent: Bruit, Distended, Firm, Guarding, Rigid, Tenderness, Organomegaly, Rebound - Extremities Exam Extremities Exam: absent: Joint Swelling, Pedal Edema - Neurological Exam Neurological Exam: Alert, Awake, Oriented x3 - Psychiatric Exam Psychiatric exam: Normal Affect, Normal Mood - Skin Skin Exam: Dry, Intact, Normal Color, Warm Assessment and Plan - Assessment and Plan (Free Text) Assessment: 53 year old female with history of hyperlipidemia who presents to hospital with complaint of progressive epigastric and right sided abdominal pain. 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 Renner <Simone Renner - Last Filed: 06/09/18 11:21> Objective - Vital Signs/Intake and Output Vital Signs (last 24 hours): Temp Pulse Resp BP Pulse Ox 97.8 F 65 20 145/88 95 06/09/18 07:20 06/09/18 07:20 06/09/18 07:20 06/09/18 07:20 06/09/18 07:20 Intake and Output: 06/09/18 06/09/18 06:59 18:59 Intake Total 800 Balance 800 - Medications Medications: Current Medications Lactated Ringer's (Lactated Ringer's) 1,000 mls @ 100 mls/hr IV .Q10H OWEN Last Admin: 06/09/18 08:53 Dose: Not Given Piperacillin Sod/Tazobactam Sod (Zosyn 3.375 Gm Iv Premix) 3.375 gm in 50 mls @ 100 mls/hr IVPB Q6H OWEN; Protocol Last Admin: 06/09/18 05:11 Dose: 100 mls/hr Metronidazole (Flagyl) 500 mg in 100 mls @ 100 mls/hr IVPB Q8H OWEN; Protocol Last Admin: 06/09/18 09:53 Dose: 100 mls/hr Morphine Sulfate (Morphine) 2 mg IVP Q4 PRN PRN Reason: Pain, moderate (4-7) Last Admin: 06/08/18 06:15 Dose: 2 mg Ondansetron HCl (Zofran Inj) 4 mg IVP Q6 PRN PRN Reason: Nausea/Vomiting Last Admin: 06/08/18 17:41 Dose: 4 mg - Labs Labs: 06/07/18 00:02 06/07/18 00:02 PT 12.9 SECONDS (9.7-12.2) H 06/07/18 00:02 INR 1.2 06/07/18 00:02 APTT 34 SECONDS (21-34) 06/07/18 00:02 Attending/Attestation - Attestation I have personally seen and examined this patient.: Yes I have fully participated in the care of the patient.: Yes I have reviewed all pertinent clinical information, including history, physical exam and plan: Yes Notes (Text): 06/09/18 11:16 I have seen and examined patient. No acute events overnight, she is seen resting in bed comfortably eating breakfast. She reports ongoing mild RUQ abdominal pain but denies nausea, vomiting, fever/chills. Review of vitals from today are normal. Hyperlipidemia Abdominal pain s/p EGD showing gastritis, choledochoduodenal fistula - Advance diet as tolerated - Continue with antibiotic therapy as per ID - Awaiting EGD biopsy results - Given recurrent abdominal pain and question of biliary sepsis, my opinion would be for surgical intervention and fistula management. Currently surgical recommendation is to continue with observation and conservative management. Patient family members have requested 2nd opinion which they intend to seek at [facility] near where they live. - No further planned GI intervention at this time, will continue to monitor patient clinical course.
--- NOTE | 2018-06-09 10:13 | CP.PCM.DIS ---
Provider - Provider Date of Admission: 06/07/18 04:35 Attending physician: James Coyle MD Primary care physician: Non [facility] Provider Consults: 06/07/18 04:38 Gastroenterology Consult Routine Comment: abd pain, poss ascending cholengitis Consulting Provider: Simone Renner Consulting Physician: Simone Renner Reason for Consult: abd pain, poss ascending cholengitis 06/07/18 09:18 Physician Consult Routine Comment: Consulting Provider: Ariel Garcia Consulting Physician: Ariel Garcia Reason for Consult: pneumobilia 06/07/18 09:36 Infectious Disease Consult Routine Comment: Consulting Provider: Shruthi Polanco Consulting Physician: Shruthi Polanco Reason for Consult: ascending cholangitis Time Spent in preparation of Discharge (in minutes): 5 Hospital Course - Lab Results Lab Results: Micro Results 06/07/18 07:11 Blood Blood Culture - Preliminary NO GROWTH AFTER 48 HOURS 06/07/18 07:11 Blood Blood Culture - Preliminary NO GROWTH AFTER 48 HOURS Most Recent Lab Values WBC 10.9 K/uL (4.8-10.8) H 06/07/18 00:02 RBC 4.05 Mil/uL (3.80-5.20) 06/07/18 00:02 Hgb 12.3 g/dL (11.0-16.0) 06/07/18 00:02 Hct 36.0 % (34.0-47.0) 06/07/18 00:02 MCV 88.8 fL (81.0-99.0) 06/07/18 00:02 MCH 30.3 pg (27.0-31.0) 06/07/18 00:02 MCHC 34.1 g/dL (33.0-37.0) 06/07/18 00:02 RDW 12.5 % (11.5-14.5) 06/07/18 00:02 Plt Count 250 K/uL (130-400) 06/07/18 00:02 MPV 9.7 fL (7.2-11.7) 06/07/18 00:02 Neut % (Auto) 69.7 % (50.0-75.0) 06/07/18 00:02 Lymph % (Auto) 21.9 % (20.0-40.0) 06/07/18 00:02 [place] % (Auto) 6.3 % (0.0-10.0) 06/07/18 00:02 Eos % (Auto) 1.9 % (0.0-4.0) 06/07/18 00:02 Baso % (Auto) 0.2 % (0.0-2.0) 06/07/18 00:02 Neut # (Auto) 7.6 K/uL (1.8-7.0) H 06/07/18 00:02 Lymph # (Auto) 2.4 K/uL (1.0-4.3) 06/07/18 00:02 [place] # (Auto) 0.7 K/uL (0.0-0.8) 06/07/18 00:02 Eos # (Auto) 0.2 K/uL (0.0-0.7) 06/07/18 00:02 Baso # (Auto) 0.0 K/uL (0.0-0.2) 06/07/18 00:02 PT 12.9 SECONDS (9.7-12.2) H 06/07/18 00:02 INR 1.2 06/07/18 00:02 APTT 34 SECONDS (21-34) 06/07/18 00:02 Sodium 136 mmol/L (132-148) 06/07/18 00:02 Potassium 3.7 mmol/L (3.6-5.2) 06/07/18 00:02 Chloride 104 mmol/L (98-107) 06/07/18 00:02 Carbon Dioxide 25 mmol/L (22-30) 06/07/18 00:02 Anion Gap 11 (10-20) 06/07/18 00:02 BUN 13 mg/dL (7-17) 06/07/18 00:02 Creatinine 0.6 mg/dL (0.7-1.2) L 06/07/18 00:02 Est GFR ( Amer) > 60 06/07/18 00:02 Est GFR (Non-Af Amer) > 60 06/07/18 00:02 Random Glucose 104 mg/dL (65-105) 06/07/18 00:02 Calcium 9.2 mg/dl (8.6-10.4) 06/07/18 00:02 Total Bilirubin 0.5 mg/dL (0.2-1.3) 06/07/18 00:02 AST 24 U/L (14-36) 06/07/18 00:02 ALT < 6 U/L (9-52) L 06/07/18 00:02 Alkaline Phosphatase 82 U/L (38-126) 06/07/18 00:02 Total Protein 7.2 g/dL (6.3-8.3) 06/07/18 00:02 Albumin 4.1 g/dL (3.5-5.0) 06/07/18 00:02 Globulin 3.1 gm/dL (2.2-3.9) 06/07/18 00:02 Albumin/Globulin Ratio 1.3 (1.0-2.1) 06/07/18 00:02 Lipase 63 U/L (23-300) 06/07/18 00:02 Urine Color Yellow (YELLOW) 06/06/18 23:35 Urine Clarity Clear (Clear) 06/06/18 23:35 Urine pH 8.0 (5.0-8.0) 06/06/18 23:35 Ur Specific [place] 1.010 (1.003-1.030) 06/06/18 23:35 Urine Protein Negative mg/dL (NEGATIVE) 06/06/18 23:35 Urine Glucose (UA) Normal mg/dL (Normal) 06/06/18 23:35 Urine Ketones Negative mg/dL (NEGATIVE) 06/06/18 23:35 Urine Blood 1+ (NEGATIVE) H 06/06/18 23:35 Urine Nitrate Negative (NEGATIVE) 06/06/18 23:35 Urine Bilirubin Negative (NEGATIVE) 06/06/18 23:35 Urine Urobilinogen Normal mg/dL (0.2-1.0) 06/06/18 23:35 Ur Leukocyte Esterase Neg [place]/uL (Negative) 06/06/18 23:35 Urine WBC (Auto) 5 /hpf (0-5) 06/06/18 23:35 Urine RBC (Auto) 1 /hpf (0-3) 06/06/18 23:35 Ur Squamous Epith Cells < 1 /hpf (0-5) 06/06/18 23:35 Urine HCG, Qual Negative (NEGATIVE) 06/06/18 23:35 - Hospital Course Hospital Course: gi recommends consulted surgery, who do not recommend surgery at this time -spoke to the daughter and she wished to take her [place] to [place], [place] and for another opinion -from GI standpoint okay to d/c w/ f/u with [place] biliary or general surgeon -continue protonix 40mg PO daily -diet as tolerated spoke to gi marco antonio as massimo jamil pmd adn surg as ap at [facility] Discharge Exam - Head Exam Head Exam: ATRAUMATIC, NORMOCEPHALIC Discharge Plan - Follow Up Plan Condition: FAIR Disposition: HOME/ ROUTINE Referrals: Non [facility] Provider, [Primary Care Provider] -
== END 2018-06-09 13:37 | disposition home or self-care (01) ==
LOC: C.ER 22:24 → SUPCPDRO 22:24 → C.9E 06-07 04:35 → C.6T 06-07 06:02
PROVIDERS: ADMIT Internal Medicine Nephrology; ATTEND Internal Medicine Nephrology
DX: K29.70 Gastritis, unspecified, without bleeding (principal); K83.3 Fistula of bile duct; E78.5 Hyperlipidemia, unspecified; J98.11 Atelectasis; K21.0 Gastro-esophageal reflux disease with esophagitis
CPT/HCPCS: 36415; 43239; 71046; 74177; 76705; 80053; 81001; 83690; 84703; 85025; 85610; 85730; 87040; 87045; 88305; 88312; 88313; 88342; 96360; 96365; 96374; 99285; G0378; J2270; J2405; J2543; J7030; J7120; Q9967